=== PATIENT | female | born 1950 | race Caucasian/White ===

== ENCOUNTER 2018-08-30 09:12 | Inpatient (IN) ==
[2018-08-30 09:33] LABS: Basophils # (auto) 0.02 K/uL (0-0.2); Basophils % (auto) 0.2 %; Eosinophils # (auto) 0.03 K/uL (0-0.5); Eosinophils % (auto) 0.3 %; Hematocrit (blood only) 49.2 % (37-47); Immature Granulocytes # (auto) 0.03 K/uL (0.00-0.02); Immature Granulocytes % (auto) 0.3 %; Lymphocytes # (auto) 0.98 K/uL (1.2-3.4); Lymphocytes % (auto) 9.6 %; Mean Corpuscular Hgb Conc 34.6 g/dL (32-36); Mean Corpuscular Volume 87.4 fL (80-100); Mean Platelet Volume 9.9 fL (7.4-10.4); Monocytes # (auto) 0.44 K/uL (0.11-0.59); Monocytes % (auto) 4.3 %; Neutrophils # (auto) 8.71 K/uL (1.4-6.5); Neutrophils % (auto) 85.3 %; Platelet Count 201 K/uL (130-400); RDW Coefficient of Variation 12.7 % (11.5-14.5); RDW Standard Deviation 40.6 fL (36.4-46.3); Red Blood Count 5.63 M/uL (4.2-5.4); White Blood Count 10.21 K/uL (4.8-10.8)
[2018-08-30 09:40] LABS: iSTAT Creatinine 0.6 mg/dl (0.6-1.3); iSTAT Ionized Calcium 1.26 mmol/l (1.12-1.32); iSTAT Potassium 3.6 mEq/L (3.3-5.0)
--- NOTE | 2018-08-30 09:43 | XRay Report ---
XR chest 1V portable CLINICAL HISTORY: altered dyspnea COMPARISON STUDY: No previous studies for comparison. FINDINGS: The bones soft tissues and hemidiaphragms are normal. The cardiomediastinal silhouette is n ormal. The lungs are clear. The pulmonary vasculature is normal. IMPRESSION: Negative chest. The above report was generated using voice recognition software. It may contain grammatical, syntax or spelling errors. Electronically signed by: Simón Arias M.D. 08/30/2018 9:42 AM
[2018-08-30 09:44] LABS: INR 1.1 (0.9-1.1); Partial Thromboplastin Ratio 0.9; Partial Thromboplastin Time 23.9 Seconds (21.0-31.0); Prothrombin Time 10.9 Seconds (9.0-12.0)
[2018-08-30 09:52] LABS: Alanine Aminotransferase 37 U/L (12-78); Albumin Level 4.2 gm/dl (3.4-5.0); Aspartate Aminotransferase 27 U/L (15-37); BUN Creatinine Ratio 22.2 (10-20); Blood Urea Nitrogen 16 mg/dl (7-18); Calcium 10.7 mg/dl (8.5-10.1); Carbon Dioxide 23 mmol/L (21-32); Chloride 111 mmol/L (98-107); Creatinine Clr Calc Pharmacy 71.1 ml/min; Est GFR (African American) 97.2; Est GFR (Non-African American) 83.8; Glucose 122 mg/dl (70-99); Magnesium 2.4 mg/dl (1.8-2.4); Potassium 3.7 mmol/L (3.5-5.1); Sodium 143 mmol/L (136-145)
[2018-08-30] MEDS ORDERED: OPTIRAY 320 125ml IV PRN (09:57)
[2018-08-30 10:00] LABS: Appearance Urine Turbid (Clear); Bilirubin Urine Negative (Negative); Blood Urine Negative (Negative); Color Urine Yellow; Epithelial Cell Urine Auto >30 /lpf (0-5); Glucose Urine UA Negative (Negative); Ketones Urine Negative (Negative); Leukocyte Esterase Urine 2+ (Negative); Nitrite Urine Negative (Negative); RBC Urine Automated 0-4 /hpf (0-4); Specific Gravity Urine 1.016 (1.000-1.030); Urobilinogen Urine Negative (Negative); pH Urine 7.5 (4.5-7.5)
--- NOTE | 2018-08-30 10:00 | CT Scan Report ---
CT head/brain wo con CLINICAL HISTORY: 67 years-old Female with Stroke evaluation . Acute strokelike symptoms TECHNIQUE: Multiple axial CT images of the head were obtained without contrast. A dose lowering tech nique was utilized adhering to the principles of ALARA. COMPARISON: None. FINDINGS: No acute intracranial hemorrhage, midline shift, intracranial mass, hydrocephalus, territorial ischem ia or abnormal extra-axial collection. Mild age-related involutional changes. Patchy white matter hyp odensities are suggestive of chronic microvascular ischemic changes. Cerebral vascular calcifications are noted. The calvarium is intact. The paranasal sinuses, mastoid air cells, and middle ear cavities are clear . IMPRESSION: No acute intracranial abnormality identified. The above report was generated using voice recognition software. It may contain grammatical, syntax o r spelling errors. Electronically signed by: Miles Garcia M.D. 08/30/2018 9:58 AM
--- NOTE | 2018-08-30 10:02 | CT Scan Report ---
CT angio head w con HISTORY: Mental status change cva TECHNIQUE: Multiaxial CT angiography of the head was performed IV contrast: None. Maximum in tensity projection images were also obtained. A dose lowering technique was utilized adhering to the principles of ALARA. COMPARISON: None. FINDINGS: There is no mass, hematoma, midline shift, or acute infarct. Visualized intracranial advisory internship al carotid arteries, distal vertebral arteries, and basilar artery are widely patent. There is no sig nificant stenosis, occlusion, or aneurysm seen within the bilateral ACAs, MCAs, or wrinkle chaser. IMPRESSION: No significant stenosis, occlusion, or aneurysm within the [place] of [place]. The above report was generated using voice recognition software. It may contain grammatical, syntax or spelling errors. Electronically signed by: Simón Arias M.D. 08/30/2018 10:01 AM
[2018-08-30 10:04] LABS: Albumin Globulin Ratio 1.2 (0.9-2); Alkaline Phosphatase 70 U/L (45-117); Bilirubin,Total 0.7 mg/dl (0.2-1); Creatine Kinase MB 2.7 ng/ml (0.5-3.6); Globulin 3.5 gm/dl (2.5-4.0); Total Protein 7.7 gm/dl (6.4-8.2); Troponin I < 0.015 ng/ml (0-0.045)
--- NOTE | 2018-08-30 10:04 | CT Scan Report ---
CT angio neck with con HISTORY: Mental status change cva TECHNIQUE: Multiaxial CT angiography of the neck was performed IV contrast: 100 cc All measure ments were calculated based on NASCET criteria. Maximum intensity projection images were also obtain ed. A dose lowering technique was utilized adhering to the principles of ALARA. COMPARISON STUDY: None. FINDINGS: The aortic arch and proximal great vessels are widely patent. There is no significant sten osis, occlusion, or dissection identified within the bilateral common carotid, internal carotid, or v ertebral arteries. IMPRESSION: No significant stenosis, occlusion, or dissection identified within the carotid or vertebral arteries . The above report was generated using voice recognition software. It may contain grammatical, syntax or spelling errors. Electronically signed by: Simón Arias M.D. 08/30/2018 10:03 AM
[2018-08-30] MEDS ORDERED: LABETALOL HCL IV 5 MG/ML 20ML IV STA ×2 (10:12→10:50)
[2018-08-30 10:18] LABS: Protein Urine Negative (Negative)
[2018-08-30] MEDS ORDERED: ALBUT/IPRATROP 3MG/0.5MG NEB 3 ML VIAL NEB STA (10:19)
[2018-08-30 10:33] LABS: Bacteria Urine Automated 1+ (Negative)
--- NOTE | 2018-08-30 12:10 | History & Physical Report ---
Date of Service August 30, 2018 Assessment & Plan (1) Altered mental status: -Admit to telemetry -Patient presenting from home after an episode of amnesia this morning -BP is significantly elevated upon EMS arrival at 226/131; in the ED 193/124 -Head CT/CTA, neck CTA unremarkable -Differentials considered: Transient global amnesia vs. stroke/TIA vs. hypertensive encephalopathy vs. metabolic encephalopathy from UTI -Obtain MRI and echo; will give full dose aspirin now and follow with 81 mg daily, check lipid panel and HbA1c in a.m. -Received labetalol 10 mg IV x 2 in the ED with improvement in BP; will continue to monitor BP throughout the day and provide additional antihypertensive if needed -Possible UTI, will place on empiric Rocephin and adjust per culture results -Neurochecks -Neuro consult (2) Hypertensive urgency: -upon EMS arrival 226/131; in the ED 193/124 -Patient typically takes amlodipine 5 mg daily -Received labetalol 10 mg IV x 2 in the ED with improvement in BP; will continue to monitor BP throughout the day and provide additional antihypertensive if needed (3) Hypercalcemia: -Mild, Ca+ 10.7 -Hold calcium supplement -Recheck with a.m. labs (4) GERD (gastroesophageal reflux disease): -Continue PPI (5) DVT prophylaxis: -SQ Lovenox History of Present Illness Chief Complaint: Altered mental status Primary Care Provider: [facility]IN PCP 67-year-old female who presents to the ED with altered mental status. History of this morning's events are unobtainable from her. History is obtained from ED records and patient's sister who is the bedside. Patient is visiting from out of town watching her grandchildren while her son is out of town. She reports she felt in her usual state of health yesterday and remembers going to bed. This morning, she vaguely remembers waking up however has no recollection of the events to follow. Apparently, patient called her son thinking she may have missed the bus for the grandchildren. He noted that she was confused and not at her baseline and he called EMS. EMS arrived to the house and brought the patient to the ED. Upon their arrival, patient's BP was 226/131. Patient's son was able to confirm that the children did arrive to school safely. Patient reports she has no remembrance of waking them up, getting them ready for school, or getting them on the bus. Patient reports she otherwise been feeling well recently. She does not note any unilateral weakness, numbness, tingling. No headache or blurred vision. She denies chest pain shortness of breath. No lightheadedness, digits, diaphoresis, syncopal events. She denies abdominal pain, nausea, vomiting, diarrhea. No other recent illnesses, fevers, chills. She denies any urinary symptoms. Upon arrival to the ED, patient's BP remained significantly elevated at 193/124. She received labetalol 10 mg IV x 2 with improvement in BP. Most recent BP is 174/97. Head CT and CTA, neck CTA are all unremarkable. Labs are unremarkable as well. Allergies Allergy/AdvReac Type Severity Reaction Status Date / Time lemon Allergy Hives Unverified 08/30/18 11:17 Home Medications Home Medications Medication Instructions Recorded Confirmed Type amlodipine [Norvasc] 5 mg PO QAM 08/30/18 08/30/18 History calcium carbonate-vitamin D3 1 tab PO QAM 08/30/18 08/30/18 History [Calcium 500 + D (D3)] omeprazole 20 mg PO QAM 08/30/18 08/30/18 History Past Med/Surg History Medical History GERD (gastroesophageal reflux disease) (Chronic) HTN (hypertension) (Chronic) Surgical History S/P bunionectomy (Chronic) History of carpal tunnel surgery (Chronic) Family History Father Coronary heart disease Mother Stroke Social History Preferred Language: [place] Communication Ability: 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 Physical Exam Constitutional: WD/WN, vitals as above Eyes: PERRL, conjunctivae normal, anicteric sclerae ENMT: external ear and nose normal, oropharynx normal Respiratory: normal respiratory effort, lungs clear to auscultation Cardiovascular: Rate/Rhythm: regular rate and regular rhythm Vessels: normal peripheral pulses Extremities: no edema Gastrointestinal (Abdomen): normal bowel sounds, soft, nontender, no hepatosplenomegaly Musculoskeletal: no cyanosis or clubbing, extremities motor strength 5/5 Skin: no rashes, warm and dry Neurologic: moves all extremities, awake and + confused (Short-term memory los s) Speech / Cognition: normal speech Motor/Sensory: no pronator drift Cranial Nerves: PERRL, EOM intact bilaterally, normal facial strength and tongue midline Coordination: normal [id number]-rg-[id number] test and normal sqdw-dv-uban test Psychiatric: A+Ox3, euthymic affect Results & Data Vital Signs (Past 12 Hours) Vital Signs Temp Pulse Pulse Resp BP BP Pulse Ox 08/30/18 11:31 90 15 174/97 H 08/30/18 11:30 87 18 08/30/18 11:15 91 H 16 156/103 H 08/30/18 11:01 96 H 21 08/30/18 11:00 95 H 14 184/122 H 08/30/18 10:45 95 H 18 175/116 H 08/30/18 10:38 97 H 16 173/114 H 96 08/30/18 10:31 95 H 15 08/30/18 10:30 95 H 17 173/114 H 08/30/18 10:24 102 H 15 166/110 H 08/30/18 10:18 116 H 19 203/115 H 08/30/18 10:17 121 H 30 H 08/30/18 10:11 120 H 17 197/121 H 93 08/30/18 10:01 107 H 16 95 08/30/18 10:00 109 H 19 191/104 H 96 08/30/18 09:59 110 H 13 175/115 H 97 08/30/18 09:58 108 H 109 H 20 188/105 H 175/115 H 96 08/30/18 09:57 109 H 22 96 08/30/18 09:30 119 H 18 08/30/18 09:22 116 H 22 96 08/30/18 09:20 36.6 C 118 H 16 193/124 H 96 08/30/18 09:18 115 H 18 193/124 H 94 Laboratory Results Laboratory Last Values WBC 10.21 K/uL (4.8-10.8) 08/30/18 09:23 RBC 5.63 M/uL (4.2-5.4) H 08/30/18 09:23 Hgb 17.0 g/dL (12.0-16.0) H 08/30/18 09:23 POC Hgb 17.0 g/dl (12.0-16.0) H 08/30/18 09:26 Hct 49.2 % (37-47) H 08/30/18 09:23 POC Hct 50 % (37-47) H 08/30/18 09:26 MCV 87.4 fL (80-100) 08/30/18 09:23 MCH 30.2 pg (25-34) 08/30/18 09:23 MCHC 34.6 g/dL (32-36) 08/30/18 09:23 RDW Std Deviation 40.6 fL (36.4-46.3) 08/30/18 09:23 RDW Coeff of Ying 12.7 % (11.5-14.5) 08/30/18 09:23 Plt Count 201 K/uL (130-400) 08/30/18 09:23 MPV 9.9 fL (7.4-10.4) 08/30/18 09:23 Immature Gran % (Auto) 0.3 % 08/30/18 09:23 Neut % (Auto) 85.3 % 08/30/18 09:23 Lymph % (Auto) 9.6 % 08/30/18 09:23 [place] % (Auto) 4.3 % 08/30/18 09:23 Eos % (Auto) 0.3 % 08/30/18 09:23 Baso % (Auto) 0.2 % 08/30/18 09:23 Immature Gran # (Auto) 0.03 K/uL (0.00-0.02) H 08/30/18 09:23 Neut # (Auto) 8.71 K/uL (1.4-6.5) H 08/30/18 09:23 Lymph # (Auto) 0.98 K/uL (1.2-3.4) L 08/30/18 09:23 [place] # (Auto) 0.44 K/uL (0.11-0.59) 08/30/18 09:23 Eos # (Auto) 0.03 K/uL (0-0.5) 08/30/18 09:23 Baso # (Auto) 0.02 K/uL (0-0.2) 08/30/18 09:23 PT 10.9 Seconds (9.0-12.0) 08/30/18 09:23 INR 1.1 (0.9-1.1) 08/30/18 09:23 APTT 23.9 Seconds (21.0-31.0) 08/30/18 09: PTT Ratio 0.9 08/30/18 09:23 POC Sodium 144 mEq/L (135-144) 08/30/18 09:26 Sodium 143 mmol/L (136-145) 08/30/18 09:23 POC Potassium 3.6 mEq/L (3.3-5.0) 08/30/18 09:26 Potassium 3.7 mmol/L (3.5-5.1) 08/30/18 09:23 POC Chloride 108 mEq/L (101-112) 08/30/18 09:26 Chloride 111 mmol/L (98-107) H 08/30/18 09:23 Carbon Dioxide 23 mmol/L (21-32) 08/30/18 09:23 POC Total CO2 24 mEq/l (24-31) 08/30/18 09:26 Anion Gap 9.0 (3-11) 08/30/18 09:23 POC Anion Gap 16.0 mmol/L (16-25) 08/30/18 09:26 POC BUN 18 mg/dl (7-18) 08/30/18 09:26 BUN 16 mg/dl (7-18) 08/30/18 09:23 Creatinine 0.74 mg/dl (0.6-1.2) 08/30/18 09:23 POC Creatinine 0.6 mg/dl (0.6-1.3) 08/30/18 09:26 Est Cr Clr Drug Dosing 71.1 ml/min 08/30/18 09:23 Est GFR ( Amer) 97.2 08/30/18 09:23 Est GFR (Non-Af Amer) 83.8 08/30/18 09:23 BUN/Creatinine Ratio 22.2 (10-20) H 08/30/18 09:23 Glucose 122 mg/dl (70-99) H 08/30/18 09:23 POC Glucose (other) 124 mg/dl (70-99) H 08/30/18 09:26 Calcium 10.7 mg/dl (8.5-10.1) H 08/30/18 09:23 POC Ioniz Calcium Jayme 1.26 mmol/l (1.12-1.32) 08/30/18 09:26 Magnesium 2.4 mg/dl (1.8-2.4) 08/30/18 09:23 Total Bilirubin 0.7 mg/dl (0.2-1) 08/30/18 09:23 AST 27 U/L (15-37) 08/30/18 09:23 ALT 37 U/L (12-78) 08/30/18 09:23 Alkaline Phosphatase 70 U/L (45-117) 08/30/18 09:23 CK-MB (CK-2) 2.7 ng/ml (0.5-3.6) 08/30/18 09:23 CK/CKMB % Calc Not Reportable 08/30/18 09:23 Troponin I < 0.015 ng/ml (0-0.045) 08/30/18 09:23 Total Protein 7.7 gm/dl (6.4-8.2) 08/30/18 09:23 Albumin 4.2 gm/dl (3.4-5.0) 08/30/18 09:23 Globulin 3.5 gm/dl (2.5-4.0) 08/30/18 09:23 Albumin/Globulin Ratio 1.2 (0.9-2) 08/30/18 09:23 Specimen Hemolysis 08/30/18 09:23 Urine Color Yellow 08/30/18 09:45 Urine Appearance Turbid (Clear) H 08/30/18 09:45 Urine pH 7.5 (4.5-7.5) 08/30/18 09:45 Ur Specific [place] 1.016 (1.000-1.030) 08/30/18 09:45 Urine Protein Negative (Negative) 08/30/18 09:45 Urine Glucose (UA) Negative (Negative) 08/30/18 09:45 Urine Ketones Negative (Negative) 08/30/18 09:45 Urine Blood Negative (Negative) 08/30/18 09:45 Urine Nitrite Negative (Negative) 08/30/18 09:45 Urine Bilirubin Negative (Negative) 08/30/18 09:45 Urine Urobilinogen Negative (Negative) 08/30/18 09:45 Ur Leukocyte Esterase 2+ (Negative) H 08/30/18 09:45 Urine WBC (Auto) 1-5 /hpf (0-5) 08/30/18 09:45 Urine RBC (Auto) 0-4 /hpf (0-4) 08/30/18 09:45 U Hyaline Cast (Auto) 1-5 /lpf (0-5) 08/30/18 09:45 U Epithel Cells (Auto) >30 /lpf (0-5) H 08/30/18 09:45 Urine Bacteria (Auto) 1+ (Negative) H 08/30/18 09:45 Diagnostic Findings CXR IMPRESSION: Negative chest. HEAD CT IMPRESSION: No acute intracranial abnormality identified. HEAD CTA IMPRESSION: No significant stenosis, occlusion, or aneurysm within the [place] of [place]. NECK CTA IMPRESSION: No significant stenosis, occlusion, or dissection identified within the carotid or vertebral arteries. Code Status & VTE Plan VTE Prophylaxis Plan VTE Prophylaxis will be ordered: Yes Supervising Physician Co-Signing Physician Notes 1. Amnesia 2/2 acute right frontal lobe stroke 2. Acute cystitis 3. Elevated HTN in the setting of acute stroke. I have seen and examined the patient and have discussed the case with the provider above. I agree with the assessment and plan as stated with the following exceptions. 67 yo F presented with acute memory loss of morning events. She is currently alert and oriented to person, place and time. She had elevated BP over 200 today, and wasn't sure if she had taken her BP med, amlodipine. She did report some palpitations in prior weeks but this was nonspecific. She otherwise did not have any other symptoms including no difficulty swallowing, speaking, swallowing, weakness of arms or legs, chest pain, shortness of breath. She does report a h/o dropped bladder and did have some urinary urgency just today but no fevers, chills, flank pain. 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 She was in no acute distress and was mentating clearly. Neuro exam including cranial nerve testing, sensation, strength, Elizabeth and finger to nose testing was all normal. Gait was not assessed but she reported walking to the ER bathroom without issue. Babinski was negative, DTR of knees could not be elicited as patient was tensing up. Fundoscopic exam was normal. CV exam revealed S1/2 heard with no murmurs, gallops or rubs. Lungs were clear to auscultation. Abdomen was soft and nontender, without distension. Workup with MRI revealed a small right frontal lobe stroke and I discussed these results with the patient and her DIL who was at bedside. All questions were answered to their satisfaction. DAPT while awaiting neuro recommendations. Cont to hold amlodipine to allow permissive HTN x 48 hours. Rocephin pending urine culture. Mohit, DO
--- NOTE | 2018-08-30 13:32 | Magnetic Resonance Report ---
MR brain wo/w con CLINICAL HISTORY: altered mental status confusion. COMPARISON STUDY: No previous studies for comparison. TECHNIQUE: Utilizing a 1.5 Danitza magnet and dedicated coil, multiplanar, multiecho imaging of the br ain was performed pre and postcontrast administration. IV administration of 8 mL of Gadavist contras t was uneventful. FINDINGS: Focus of acute/subacute ischemic change right frontal convexity. No additional acute ischem ic findings. Moderate age-related chronic small vessel change and atrophy. No significant postcontrast enhancement. Ventricular system is midline. No midline shift. IMPRESSION: 1. Small acute/subacute infarct right superior frontal lobe. 2. Age-related atrophy with significant chronic small vessel change throughout both cerebral hemisphe res. 3. No abnormal postcontrast enhancement. The above report was generated using voice recognition software. It may contain grammatical, syntax or spelling errors. Electronically signed by: Simón Arias M.D. 08/30/2018 1:31 PM
[2018-08-30] MEDS ORDERED: CLOPIDOGREL BISULFATE 75 MG TAB PO ONE (14:01)
[2018-08-30] MEDS ORDERED: ASPIRIN 81 MG ECTAB PO ONE (14:02)
[2018-08-30] MEDS ORDERED: PHARMACIST DISCHARGE MED REC CONSULT PRN (15:35)
[2018-08-30] MEDS ORDERED: ACETAMINOPHEN 325 MG TAB PO PRN (15:35)
--- NOTE | 2018-08-30 15:54 | Neurology Consultation ---
Date of Consultation August 30, 2018 Assessment & Plan (1) Stroke: 1. MRI brain- right superior frontal lobe infarct 2. CTA head and neck -no high grade stenosis 3. start plavix 75 mg and aspirin 81 mg daily x 21 days then aspirin 81 mg alone for a lifetime 4. optimize HTN, HLD LDL <70 5. PT/OT speech for any discharge needs 6. TTE pending read 7. ZIO or cardionet as outpatient to r/o arrhythmias 8. lives in [facility] no neurology follow up with our office- please give specific instructions so PCP can follow up with plan ok to discharge once medically stable Supervising Physician Co-Signing Physician Notes I have seen and discussed above patient with Dr Jimi Handy, neurology I have seen, examined and interviewed Mrs. Farrar discussed her case with Aracely White PA-C, have reviewed her imaging studies and agree that she has had what appears to be a small acute infarction involving the deep portions of the right frontal lobe with a clinical history that suggests the entity of transient global amnesia which generally is felt to be due to ischemia of a dominant temporal lobe She has no recall of events of this morning about 6 AM on he had apparently was capable of getting her grandchildren onto the bus, made several phone calls but was repetitious to the point that family members became concerned enough to range for her to be taken to the hospital evaluated and subsequently admitted. Thus far she has had normal sinus rhythm and echocardiogram is pending vascular studies of the intracranial anatomy are normal and we do have only a small punctate infarction involving the right frontal lobe Because of the small infarction is not yet readily established. I am highly suspicious of an embolic event and at this point we are simply going up to keep her on dual antiplatelet therapy and arrange for her to be followed up in her home medical system [facility] and to have some form of monitoring for paroxysmal atrial fibrillation either a 0 patch or what ever monitoring device would be available to her in that area. We will see if the echocardiogram shows any clear source of cardiogenic emboli but unless it does there is really no role here for novel anticoagulants or Coumadin until we have a little more information. Please because we have an acute infarction which may be at least in part an explanation of her event I see no reason to do an EEG as the odds of this being due to a seizure are extremely low. We will check back tomorrow review the outstanding studies but if she is clinically stable, there is no significant abnormalities on the echo the family wants her to be discharged we can easily permit discharge and follow-up in her local area Jimi Handy MD History of Present Illness Reason for Consultation: AMS/amensia Requesting Physician: Shiela Booker MD Attending Physician: Shiela Booker History of Present Illness Marjorie is a 67 year old female who presents to the ED with altered mental status. She is visiting from out of town watching her grandchildren while her son is out of town. She vaguely remembers waking up however has no recollection of the events to follow. She called her son thinking she may have missed the bus for the grandchildren. He noted that she was confused and not at her baseline and he called EMS. EMS arrived to the house and brought the patient to the ED. Her Blood pressure was 226/131. Her son was able to confirm that the children did arrive to school safely. She does not remember getting them ready for school, or getting them on the bus. She received labetalol 10 mg IV x 2 with improvement in BP. Most recent BP is 174/97. Head CT and CTA, neck CTA are all unremarkable. the only medical issues she has is HTN and GERD. Her father of a massive heart attach in his 70's and mom of a stroke in her 80's. Her son afjacquelyn, a sister with blood pressure issues. Her blood pressure is well controlled accept when she is at the doctor's she has white coat syndrome. denies CP, SOB, abdominal pain, N, V, D, one sided weakness, numbness tingling, vision changes, swallowing issues. Allergies Allergy/AdvReac Type Severity Reaction Status Date / Time lemon Allergy Hives Unverified 08/30/18 11:17 Home Medications Home Medications Medication Instructions Recorded Confirmed Type amlodipine [Norvasc] 5 mg PO QAM 08/30/18 08/30/18 History calcium carbonate-vitamin D3 1 tab PO QAM 08/30/18 08/30/18 History [Calcium 500 + D (D3)] omeprazole 20 mg PO QAM 08/30/18 08/30/18 History Patient History Medical History GERD (gastroesophageal reflux disease) (Chronic) HTN (hypertension) (Chronic) Surgical History S/P bunionectomy (Chronic) History of carpal tunnel surgery (Chronic) Family History Father Coronary heart disease Mother Stroke Social History Preferred Language: [place] Communication Ability: Effective Loom Fixer Required: No Beliefs That Will Affect Care: Samaritan Samaritan Beliefs: Scientologist Current Living Situation: Spouse and Family Other Information That Helps Us Care for You: No Feels Safe at Home: Yes Safety Concerns: Feels Safe At This Time Smoking Status: Never smoker Do You Dip or Chew Tobacco: No Hx Alcohol Use: No Hx Substance Use: No Physical Exam Physical Exam: Physical Exam: Constitutional: appearance over nourished, healthy and normal Ears, Nose, Mouth and Throat: mucous membranes moist, no injection and skin normal, eyes normal Cardiovascular: normal S-1 and S-2 and regular rate and rhythm Respiratory: clear to auscultation (CTA) and no rales, rhonchi or wheeze Musculoskeletal: no peripheral edema and good distal pulses Skin: no stigmata of neurocutaneous disease noted and normal and intact Eyes: extraocular muscles intact (EOMI) and pupils equal, round and reactive to light (PERRL), peripheral vision grossly intact NEUROLOGIC EXAMINATION: Mental status: Alert and interactive Oriented to full date and location, August holiday Anika, president Lit, [facility], staying in [place] identifed sister and daughter in law Oriented to person Speech fluent with no evidence of aphasia Cranial Nerves smile eye brow raise symmetric Reflexes: Deep tendon reflexes were symmetrical and graded 2/5. Sensory: light and cool touch Coordination: finger to nose no bi pass, rapid movement of hands bilaterally intact Gait/Stance: Posture sitting up in bed has been walking to the bathroom with no difficulty Motor: Negative for pronator drift of out stretched arms with eyes closed. Strength: biceps triceps hand admin assistant bilaterally 5/5, hip flex patellar/plantar flex ext 5/5 bilaterally Results & Data Vital Signs (Past 12 Hours) Vital Signs Temp Pulse Pulse Resp BP BP Pulse Ox 08/30/18 14:31 85 22 97 08/30/18 14:30 79 19 164/106 H 96 04/24/19 14:15 87 18 96 08/30/18 14:01 85 15 95 08/30/18 14:00 85 20 141/92 H 96 08/30/18 13:45 84 13 96 08/30/18 13:33 83 13 08/30/18 13:32 155/86 H 08/30/18 12:45 87 17 94 08/30/18 12:30 88 16 167/102 H 95 08/30/18 12:15 88 17 167/109 H 95 08/30/18 12:01 91 H 16 94 08/30/18 12:00 89 17 176/103 H 95 08/30/18 11:45 88 19 155/103 H 95 08/30/18 11:32 89 17 08/30/18 11:31 90 15 174/97 H 08/30/18 11:30 87 18 08/30/18 11:15 91 H 16 156/103 H 08/30/18 11:01 96 H 21 08/30/18 11:00 95 H 14 184/122 H 08/30/18 10:45 95 H 18 175/116 H 08/30/18 10:38 97 H 16 173/114 H 96 08/30/18 10:31 95 H 15 08/30/18 10:30 95 H 17 173/114 H 08/30/18 10:24 102 H 15 166/110 H 08/30/18 10:18 116 H 19 203/115 H 08/30/18 10:17 121 H 30 H 08/30/18 10:11 120 H 17 197/121 H 93 08/30/18 10:01 107 H 16 95 08/30/18 10:00 109 H 19 191/104 H 96 08/30/18 09:59 110 H 13 175/115 H 97 08/30/18 09:58 108 H 109 H 20 188/105 H 175/115 H 96 08/30/18 09:57 109 H 22 96 08/30/18 09:30 119 H 18 08/30/18 09:22 116 H 22 96 08/30/18 09:20 36.6 C 118 H 16 193/124 H 96 08/30/18 09:18 115 H 18 193/124 H 94 Laboratory Results Abnormal lab results 08/30/18 08/30/18 08/30/18 Range/Units 09:23 09:23 09:26 RBC 5.63 H (4.2-5.4) M/uL Hgb 17.0 H (12.0-16.0) g/dL POC Hgb 17.0 H (12.0-16.0) g/dl Hct 49.2 H (37-47) % POC Hct 50 H (37-47) % Immature Gran # (Auto) 0.03 H (0.00-0.02) K/uL Neut # (Auto) 8.71 H (1.4-6.5) K/uL Lymph # (Auto) 0.98 L (1.2-3.4) K/uL Chloride 111 H (98-107) mmol/L BUN/Creatinine Ratio 22.2 H (10-20) Glucose 122 H (70-99) mg/dl POC Glucose (other) 124 H (70-99) mg/dl Calcium 10.7 H (8.5-10.1) mg/dl Urine Appearance (Clear) Ur Leukocyte Esterase (Negative) U Epithel Cells (Auto) (0-5) /lpf Urine Bacteria (Auto) (Negative) 08/30/18 Range/Units 09:45 RBC (4.2-5.4) M/uL Hgb (12.0-16.0) g/dL POC Hgb (12.0-16.0) g/dl Hct (37-47) % POC Hct (37-47) % Immature Gran # (Auto) (0.00-0.02) K/uL Neut # (Auto) (1.4-6.5) K/uL Lymph # (Auto) (1.2-3.4) K/uL Chloride (98-107) mmol/L BUN/Creatinine Ratio (10-20) Glucose (70-99) mg/dl POC Glucose (other) (70-99) mg/dl Calcium (8.5-10.1) mg/dl Urine Appearance Turbid H (Clear) Ur Leukocyte Esterase 2+ H (Negative) U Epithel Cells (Auto) >30 H (0-5) /lpf Urine Bacteria (Auto) 1+ H (Negative) Diagnostic Findings CXR-Negative chest. CT head- No acute intracranial abnormality identified. CTA head-No significant stenosis, occlusion, or aneurysm within the [place]. CTA neck-No significant stenosis, occlusion, or dissection identified within the carotid or vertebral arteries. MRI brain combo-Small acute/subacute infarct right superior frontal lobe. Age- related atrophy with significant chronic small vessel change throughout both cerebral hemispheres. No abnormal postcontrast enhancement. (1) Stroke CVA mechanism: unspecified Qualified Code(s): I63.9 - Cerebral infarction, unspecified
[2018-08-30] MEDS ORDERED: ENOXAPARIN INJ 40 MG/0.4 ML SYR SQ SCH (16:00)
[2018-08-30] MEDS ORDERED: cefTRIAXone SODIUM 1,000 MG in DEXTROSE 5% 50 ML IV SCH (16:00)
[2018-08-30] MEDS ORDERED: PERFLUTREN LIPID MICROSPHERE (DEFINITY) IV ONE (16:27)
--- NOTE | 2018-08-30 18:10 | Emergency Department Note ---
Entered by Yaneth Uriarte acting as a scribe for Noel Fournier DO History of Present Illness General Chief complaint: Altered Mental Status Time Seen by Provider: 08/30/18 09:13 Source: patient and EMS Limitations: altered mental status History of Present Illness Provider complaint: altered mental status Onset (ago): hour(s) (today) Location: head Quality: + other (altered mental status) Associated symptoms: no headaches and no nausea/vomiting The patient is a 67 year old female who present to the emergency department with complaints of an altered mental status today. The patient denies having nausea, vomiting, or headaches. She reports that she takes a blood pressure medication but denies being on blood thinners. She denies a history of strokes. Limited HPI secondary to AMS. Per EMS, the patient was talking in circles and stated that she has not taken her blood pressure medication over the last several days. EMS states that he is unsure when the patient's symptoms began and states that the patient's son called about 35 minutes prior to arrival. Per EMS, the patient is visiting [facility]. Home Medications Home Medications Medication Instructions Recorded Confirmed Type amlodipine [Norvasc] 5 mg PO QAM 08/30/18 08/30/18 History calcium carbonate-vitamin D3 1 tab PO QAM 08/30/18 08/30/18 History [Calcium 500 + D (D3)] omeprazole 20 mg PO QAM 08/30/18 08/30/18 History Allergies Allergy/AdvReac Type Severity Reaction Status Date / Time lemon Allergy Hives Unverified 08/30/18 11:17 Past Med/Surg History Medical History GERD (gastroesophageal reflux disease) (Chronic) HTN (hypertension) (Chronic) Surgical History S/P bunionectomy (Chronic) History of carpal tunnel surgery (Chronic) Family History Father Coronary heart disease Mother Stroke Social History Preferred Language: Indian Communication Ability: Effective 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 Physical Exam Vital Signs Vital Signs - 24 hr 08/30/18 09:18 08/30/18 09:20 08/30/18 09:22 Temperature 36.6 C Temperature Source Oral Sepsis Recent Fever Within 48 Hours No Sepsis New/Unexplained Change in Mental Status No Sepsis Action Taken by Nursing No Action Required Pulse Rate 115 H 118 H 116 H Pulse Rate [Apical] Pulse Rate from SpO2 Sensor 114 H 116 H Respiratory Rate 18 16 22 Respiratory Effort / Characteristics Respiratory Depth Respiratory Pattern Blood Pressure 193/124 H 193/124 H Blood Pressure [Right Arm] Blood Pressure Mean 147 147 Blood Pressure Mean [Right Arm] Blood Pressure Position [Right Arm] Pulse Oximetry 94 96 96 Oxygen Delivery Method Room Air 08/30/18 09:30 08/30/18 09:57 08/30/18 09:58 Temperature Temperature Source Sepsis Recent Fever Within 48 Hours Sepsis New/Unexplained Change in Mental Status Sepsis Action Taken by Nursing Pulse Rate 119 H 109 H 108 H Pulse Rate [Apical] 109 H Pulse Rate from SpO2 Sensor 108 H 108 H Respiratory Rate 18 22 20 Respiratory Effort / Characteristics Non-Labored Spontaneous Respiratory Depth Normal Respiratory Pattern Blood Pressure 188/105 H Blood Pressure [Right Arm] 175/115 H Blood Pressure Mean 132 Blood Pressure Mean [Right Arm] 135 Blood Pressure Position [Right Arm] Pulse Oximetry 96 96 Oxygen Delivery Method Room Air 08/30/18 09:59 08/30/18 10:00 08/30/18 10:01 Temperature Temperature Source Sepsis Recent Fever Within 48 Hours Sepsis New/Unexplained Change in Mental Status Sepsis Action Taken by Nursing Pulse Rate 110 H 109 H 107 H Pulse Rate [Apical] Pulse Rate from SpO2 Sensor 109 H 109 H 107 H Respiratory Rate 13 19 16 Respiratory Effort / Characteristics Respiratory Depth Respiratory Pattern Blood Pressure 175/115 H 191/104 H Blood Pressure [Right Arm] Blood Pressure Mean 135 133 Blood Pressure Mean [Right Arm] Blood Pressure Position [Right Arm] Pulse Oximetry 97 96 95 Oxygen Delivery Method 08/30/18 10:11 08/30/18 10:17 08/30/18 10:18 Temperature Temperature Source Sepsis Recent Fever Within 48 Hours Sepsis New/Unexplained Change in Mental Status Sepsis Action Taken by Nursing Pulse Rate 120 H 121 H 116 H Pulse Rate [Apical] Pulse Rate from SpO2 Sensor 119 H Respiratory Rate 17 30 H 19 Respiratory Effort / Characteristics Respiratory Depth Respiratory Pattern Blood Pressure 197/121 H 203/115 H Blood Pressure [Right Arm] Blood Pressure Mean 146 144 Blood Pressure Mean [Right Arm] Blood Pressure Position [Right Arm] Pulse Oximetry 93 Oxygen Delivery Method 08/30/18 10:24 08/30/18 10:30 08/30/18 10:31 Temperature Temperature Source Sepsis Recent Fever Within 48 Hours Sepsis New/Unexplained Change in Mental Status Sepsis Action Taken by Nursing Pulse Rate 102 H 95 H 95 H Pulse Rate [Apical] Pulse Rate from SpO2 Sensor Respiratory Rate 15 17 15 Respiratory Effort / Characteristics Respiratory Depth Respiratory Pattern Blood Pressure 166/110 H 173/114 H Blood Pressure [Right Arm] Blood Pressure Mean 128 133 Blood Pressure Mean [Right Arm] Blood Pressure Position [Right Arm] Pulse Oximetry Oxygen Delivery Method 08/30/18 10:38 08/30/18 10:45 08/30/18 11:00 Temperature Temperature Source Sepsis Recent Fever Within 48 Hours Sepsis New/Unexplained Change in Mental Status Sepsis Action Taken by Nursing Pulse Rate 95 H 95 H Pulse Rate [Apical] 97 H Pulse Rate from SpO2 Sensor Respiratory Rate 16 18 14 Respiratory Effort / Characteristics Respiratory Depth Respiratory Pattern Blood Pressure 175/116 H 184/122 H Blood Pressure [Right Arm] 173/114 H Blood Pressure Mean 135 142 Blood Pressure Mean [Right Arm] 133 Blood Pressure Position [Right Arm] Pulse Oximetry 96 Oxygen Delivery Method Room Air 08/30/18 11:01 08/30/18 11:15 08/30/18 11:30 Temperature Temperature Source Sepsis Recent Fever Within 48 Hours Sepsis New/Unexplained Change in Mental Status Sepsis Action Taken by Nursing Pulse Rate 96 H 91 H 87 Pulse Rate [Apical] Pulse Rate from SpO2 Sensor Respiratory Rate 21 16 18 Respiratory Effort / Characteristics Respiratory Depth Respiratory Pattern Blood Pressure 156/103 H Blood Pressure [Right Arm] Blood Pressure Mean 120 Blood Pressure Mean [Right Arm] Blood Pressure Position [Right Arm] Pulse Oximetry Oxygen Delivery Method 08/30/18 11:31 08/30/18 11:32 08/30/18 11:45 Temperature Temperature Source Sepsis Recent Fever Within 48 Hours Sepsis New/Unexplained Change in Mental Status Sepsis Action Taken by Nursing Pulse Rate 90 89 88 Pulse Rate [Apical] Pulse Rate from SpO2 Sensor 88 Respiratory Rate 15 17 19 Respiratory Effort / Characteristics Respiratory Depth Respiratory Pattern Blood Pressure 174/97 H 155/103 H Blood Pressure [Right Arm] Blood Pressure Mean 122 120 Blood Pressure Mean [Right Arm] Blood Pressure Position [Right Arm] Pulse Oximetry 95 Oxygen Delivery Method Room Air 08/30/18 12:00 08/30/18 12:01 08/30/18 12:15 Temperature Temperature Source Sepsis Recent Fever Within 48 Hours Sepsis New/Unexplained Change in Mental Status Sepsis Action Taken by Nursing Pulse Rate 89 91 H 88 Pulse Rate [Apical] Pulse Rate from SpO2 Sensor 89 90 88 Respiratory Rate 17 16 17 Respiratory Effort / Characteristics Respiratory Depth Respiratory Pattern Blood Pressure 176/103 H 167/109 H Blood Pressure [Right Arm] Blood Pressure Mean 127 128 Blood Pressure Mean [Right Arm] Blood Pressure Position [Right Arm] Pulse Oximetry 95 94 95 Oxygen Delivery Method 08/30/18 12:30 08/30/18 12:45 08/30/18 13:32 Temperature Temperature Source Sepsis Recent Fever Within 48 Hours Sepsis New/Unexplained Change in Mental Status Sepsis Action Taken by Nursing Pulse Rate 88 87 Pulse Rate [Apical] Pulse Rate from SpO2 Sensor 88 88 Respiratory Rate 16 17 Respiratory Effort / Characteristics Respiratory Depth Respiratory Pattern Blood Pressure 167/102 H 155/86 H Blood Pressure [Right Arm] Blood Pressure Mean 123 109 Blood Pressure Mean [Right Arm] Blood Pressure Position [Right Arm] Pulse Oximetry 95 94 Oxygen Delivery Method 08/30/18 13:33 08/30/18 13:45 08/30/18 14:00 Temperature Temperature Source Sepsis Recent Fever Within 48 Hours Sepsis New/Unexplained Change in Mental Status Sepsis Action Taken by Nursing Pulse Rate 83 84 85 Pulse Rate [Apical] Pulse Rate from SpO2 Sensor 85 85 Respiratory Rate 13 13 20 Respiratory Effort / Characteristics Respiratory Depth Respiratory Pattern Blood Pressure 141/92 H Blood Pressure [Right Arm] Blood Pressure Mean 108 Blood Pressure Mean [Right Arm] Blood Pressure Position [Right Arm] Pulse Oximetry 96 96 Oxygen Delivery Method 08/30/18 14:01 08/30/18 14:15 08/30/18 14:30 Temperature Temperature Source Sepsis Recent Fever Within 48 Hours Sepsis New/Unexplained Change in Mental Status Sepsis Action Taken by Nursing Pulse Rate 85 87 79 Pulse Rate [Apical] Pulse Rate from SpO2 Sensor 86 89 78 Respiratory Rate 15 18 19 Respiratory Effort / Characteristics Respiratory Depth Respiratory Pattern Blood Pressure 164/106 H Blood Pressure [Right Arm] Blood Pressure Mean 125 Blood Pressure Mean [Right Arm] Blood Pressure Position [Right Arm] Pulse Oximetry 95 96 96 Oxygen Delivery Method 08/30/18 14:31 08/30/18 14:41 08/30/18 16:00 Temperature 36.8 C Temperature Source Oral Sepsis Recent Fever Within 48 Hours Sepsis New/Unexplained Change in Mental Status Sepsis Action Taken by Nursing Pulse Rate 85 86 Pulse Rate [Apical] 79 Pulse Rate from SpO2 Sensor 81 Respiratory Rate 22 16 Respiratory Effort / Characteristics Non-Labored Spontaneous Respiratory Depth Normal Respiratory Pattern Regular Blood Pressure Blood Pressure [Right Arm] 176/116 H Blood Pressure Mean Blood Pressure Mean [Right Arm] 136 Blood Pressure Position [Right Arm] Pulse Oximetry 97 96 Oxygen Delivery Method Room Air Room Air 08/30/18 19:55 08/31/18 00:26 08/31/18 03:09 Temperature 36.9 C 36.6 C 37.0 C Temperature Source Oral Oral Oral Sepsis Recent Fever Within 48 Hours Sepsis New/Unexplained Change in Mental Status Sepsis Action Taken by Nursing Pulse Rate Pulse Rate [Apical] 76 83 84 Pulse Rate from SpO2 Sensor Respiratory Rate 19 18 18 Respiratory Effort / Characteristics Respiratory Depth Normal Respiratory Pattern Blood Pressure Blood Pressure [Right Arm] 163/99 H 158/96 H 166/100 H Blood Pressure Mean Blood Pressure Mean [Right Arm] 120 116 122 Blood Pressure Position [Right Arm] Lying Pulse Oximetry 96 97 96 Oxygen Delivery Method Room Air Room Air Room Air GENERAL: Patient is awake, alert, and in no acute distress.Patient is resting comfortably and showing no signs of anxiety EYES: The conjunctivae are clear. The pupils are round and reactive. EARS, NOSE, MOUTH AND THROAT: The nose is without any evidence of any deformity. Mucous membranes are moist.Tongue is midline NECK: The neck is nontender and supple. RESPIRATORY: Normal respiratory effort is noted. There is no evidence of wheezi ng rhonchi or rales to auscultation. CARDIOVASCULAR: Regular rate and rhythm noted. There no murmurs rubs or gallops normal S1 normal S2 GASTROINTESTINAL: The abdomen is soft. Bowel sounds are present in all quadrants. Abdomen is nontender. BACK: No midline tenderness or or step-off noted range of motion in flexion extension as well as rotation no signs of muscle spasm noted. MUSCULOSKELETAL/EXTREMITIES: There is no evidence of gross deformity. Full range of motion is noted in the hips and shoulders. SKIN: There is no obvious evidence of any rash. There are no petechiae, pallor or cyanosis noted. NEUROLOGIC: Patient is awake and alert. Her strength is symmetric. Her patellar reflexes are 1+ bilaterally. She is oriented to person and place but has difficulty with time and situation. Course 0915: The patient was evaluated in room B12B. A history and physical was performed. 0925: I spoke to the patient's son, Emery. He said that his ex- was at the house last night at 2100 and all was well. He stated that the patient called him this morning and seemed off. He stated that the patient did not have any recent trauma. 0938: I spoke to the patient's son again. 1040: I updated the patient. 1053: I discussed the patient's case with Krystyna Rankin who will evaluate the patient for further management. Consultations Consultation #1: Krystyna Rankin Time: 10:53 Administered Medications Enoxaparin Sodium (Lovenox) 40 mg SQ Q24H MARGARITA Stop: 09/29/18 15:59 Last Admin: 08/30/18 17:22 Dose: 40 mg Documented by: [id number] Ceftriaxone Sodium 1,000 mg/ (Dextrose) 50 mls @ 100 mls/hr IV Q24H MARGARITA; Protocol Stop: 09/04/18 15:59 Last Infusion: 08/30/18 17:51 Dose: 0 mls/hr Documented by: [id number] Admin: 08/30/18 17:21 Dose: 100 mls/hr Documented by: [id number] Discontinued Medications Albuterol (Duoneb) 3 ml NEB NOW STA Stop: 08/30/18 10:20 Last Admin: 08/30/18 17:41 Dose: Not Given Documented by: [id number] Aspirin (Ecotrin Ectab) 81 mg PO ONE ONE Stop: 08/30/18 14:03 Last Admin: 08/30/18 17:21 Dose: 81 mg Documented by: [id number] Clopidogrel Bisulfate (Plavix) 75 mg PO NOW ONE Stop: 08/30/18 14:02 Last Admin: 08/30/18 17:21 Dose: 75 mg Documented by: [id number] Ioversol (Optiray 320 125ml) 120 ml IV ONCE PRN PRN Reason: Interaction Checking Stop: 09/03/18 09:56 Last Admin: 08/30/18 09:58 Dose: 120 ml Documented by: [id number] Labetalol HCl (Normodyne) 10 mg IV NOW STA Stop: 08/30/18 10:13 Last Admin: 08/30/18 10:21 Dose: 10 mg Documented by: [id number] Cosigned by: [id number] Labetalol HCl (Normodyne) 10 mg IV NOW STA Stop: 08/30/18 10:51 Last Admin: 08/30/18 11:11 Dose: 10 mg Documented by: [id number] Cosigned by: [id number] Perflutren Lipid Microsphere (Definity) 2 ml IV ONCE ONE Stop: 08/30/18 16:28 Last Admin: 08/30/18 16:27 Dose: 2 ml Documented by: [id number] Medical Decision Making Differential Diagnosis Differential includes acute coronary syndrome, myocardial infarction, CVA, TIA, anemia, infection, pneumonia, UTI, pyelonephritis, poor nutrition, dehydration, electrolyte disturbance,hypoglycemia. Medical Records Attestation: I reviewed the patient's medical records. Home Medications Current Medication List: was personally reviewed by me Laboratory Data Attestation: I reviewed the patient's lab results. Result diagrams: 08/31/18 05:37 08/31/18 05:37 Lab Results 08/30/18 08/30/18 08/30/18 Range/Units 09:23 09:23 09:23 WBC 10.21 (4.8-10.8) K/uL RBC 5.63 H (4.2-5.4) M/uL Hgb 17.0 H (12.0-16.0) g/dL POC Hgb (12.0-16.0) g/dl Hct 49.2 H (37-47) % POC Hct (37-47) % MCV 87.4 (80-100) fL MCH 30.2 (25-34) pg MCHC 34.6 (32-36) g/dL RDW Std Deviation 40.6 (36.4-46.3) fL RDW Coeff of Ying 12.7 (11.5-14.5) % Plt Count 201 (130-400) K/uL MPV 9.9 (7.4-10.4) fL Immature Gran % (Auto) 0.3 % Neut % (Auto) 85.3 % Lymph % (Auto) 9.6 % [place] % (Auto) 4.3 % Eos % (Auto) 0.3 % Baso % (Auto) 0.2 % Immature Gran # (Auto) 0.03 H (0.00-0.02) K/uL Neut # (Auto) 8.71 H (1.4-6.5) K/uL Lymph # (Auto) 0.98 L (1.2-3.4) K/uL [place] # (Auto) 0.44 (0.11-0.59) K/uL Eos # (Auto) 0.03 (0-0.5) K/uL Baso # (Auto) 0.02 (0-0.2) K/uL PT 10.9 (9.0-12.0) Seconds INR 1.1 (0.9-1.1) APTT 23.9 (21.0-31.0) Seconds PTT Ratio 0.9 POC Sodium (135-144) mEq/L Sodium 143 (136-145) mmol/L POC Potassium (3.3-5.0) mEq/L Potassium 3.7 (3.5-5.1) mmol/L POC Chloride (101-112) mEq/L Chloride 111 H (98-107) mmol/L Carbon Dioxide 23 (21-32) mmol/L POC Total CO2 (24-31) mEq/l Anion Gap 9.0 (3-11) POC Anion Gap (16-25) mmol/L POC BUN (7-18) mg/dl BUN 16 (7-18) mg/dl Creatinine 0.74 (0.6-1.2) mg/dl POC Creatinine (0.6-1.3) mg/dl Est Cr Clr Drug Dosing 71.1 ml/min Est GFR ( Amer) 97.2 Est GFR (Non-Af Amer) 83.8 BUN/Creatinine Ratio 22.2 H (10-20) Glucose 122 H (70-99) mg/dl POC Glucose (other) (70-99) mg/dl Estimat Average Glucose mg/dl Hemoglobin A1c (4.5-5.6) % Calcium 10.7 H (8.5-10.1) mg/dl POC Ioniz Calcium Jayme (1.12-1.32) mmol/l Magnesium 2.4 (1.8-2.4) mg/dl Total Bilirubin 0.7 (0.2-1) mg/dl AST 27 (15-37) U/L ALT 37 (12-78) U/L Alkaline Phosphatase 70 (45-117) U/L CK-MB (CK-2) 2.7 (0.5-3.6) ng/ml CK/CKMB % Calc Not Reportable Troponin I < 0.015 (0-0.045) ng/ml Total Protein 7.7 (6.4-8.2) gm/dl Albumin 4.2 (3.4-5.0) gm/dl Globulin 3.5 (2.5-4.0) gm/dl Albumin/Globulin Ratio 1.2 (0.9-2) Triglycerides (0-150) mg/dl Cholesterol (0-200) mg/dl LDL Cholesterol, Calc mg/dl VLDL Cholesterol, Calc mg/dl HDL Cholesterol mg/dl Cholesterol/HDL Ratio Specimen Hemolysis Urine Color Urine Appearance (Clear) Urine pH (4.5-7.5) Ur Specific [place] (1.000-1.030) Urine Protein (Negative) Urine Glucose (UA) (Negative) Urine Ketones (Negative) Urine Blood (Negative) Urine Nitrite (Negative) Urine Bilirubin (Negative) Urine Urobilinogen (Negative) Ur Leukocyte Esterase (Negative) Urine WBC (Auto) (0-5) /hpf Urine RBC (Auto) (0-4) /hpf U Hyaline Cast (Auto) (0-5) /lpf U Epithel Cells (Auto) (0-5) /lpf Urine Bacteria (Auto) (Negative) 08/30/18 08/30/18 08/30/18 Range/Units 09:23 09:26 09:45 WBC (4.8-10.8) K/uL RBC (4.2-5.4) M/uL Hgb (12.0-16.0) g/dL POC Hgb 17.0 H (12.0-16.0) g/dl Hct (37-47) % POC Hct 50 H (37-47) % MCV (80-100) fL MCH (25-34) pg MCHC (32-36) g/dL RDW Std Deviation (36.4-46.3) fL RDW Coeff of Ying (11.5-14.5) % Plt Count (130-400) K/uL MPV (7.4-10.4) fL Immature Gran % (Auto) % Neut % (Auto) % Lymph % (Auto) % [place] % (Auto) % Eos % (Auto) % Baso % (Auto) % Immature Gran # (Auto) (0.00-0.02) K/uL Neut # (Auto) (1.4-6.5) K/uL Lymph # (Auto) (1.2-3.4) K/uL [place] # (Auto) (0.11-0.59) K/uL Eos # (Auto) (0-0.5) K/uL Baso # (Auto) (0-0.2) K/uL PT (9.0-12.0) Seconds INR (0.9-1.1) APTT (21.0-31.0) Seconds PTT Ratio POC Sodium 144 (135-144) mEq/L Sodium (136-145) mmol/L POC Potassium 3.6 (3.3-5.0) mEq/L Potassium (3.5-5.1) mmol/L POC Chloride 108 (101-112) mEq/L Chloride (98-107) mmol/L Carbon Dioxide (21-32) mmol/L POC Total CO2 24 (24-31) mEq/l Anion Gap (3-11) POC Anion Gap 16.0 (16-25) mmol/L POC BUN 18 (7-18) mg/dl BUN (7-18) mg/dl Creatinine (0.6-1.2) mg/dl POC Creatinine 0.6 (0.6-1.3) mg/dl Est Cr Clr Drug Dosing ml/min Est GFR ( Amer) Est GFR (Non-Af Amer) BUN/Creatinine Ratio (10-20) Glucose (70-99) mg/dl POC Glucose (other) 124 H (70-99) mg/dl Estimat Average Glucose 123 mg/dl Hemoglobin A1c 5.9 H (4.5-5.6) % Calcium (8.5-10.1) mg/dl POC Ioniz Calcium Jayme 1.26 (1.12-1.32) mmol/l Magnesium (1.8-2.4) mg/dl Total Bilirubin (0.2-1) mg/dl AST (15-37) U/L ALT (12-78) U/L Alkaline Phosphatase (45-117) U/L CK-MB (CK-2) (0.5-3.6) ng/ml CK/CKMB % Calc Troponin I (0-0.045) ng/ml Total Protein (6.4-8.2) gm/dl Albumin (3.4-5.0) gm/dl Globulin (2.5-4.0) gm/dl Albumin/Globulin Ratio (0.9-2) Triglycerides (0-150) mg/dl Cholesterol (0-200) mg/dl LDL Cholesterol, Calc mg/dl VLDL Cholesterol, Calc mg/dl HDL Cholesterol mg/dl Cholesterol/HDL Ratio Specimen Hemolysis Urine Color Yellow Urine Appearance Turbid H (Clear) Urine pH 7.5 (4.5-7.5) Ur Specific [place] 1.016 (1.000-1.030) Urine Protein Negative (Negative) Urine Glucose (UA) Negative (Negative) Urine Ketones Negative (Negative) Urine Blood Negative (Negative) Urine Nitrite Negative (Negative) Urine Bilirubin Negative (Negative) Urine Urobilinogen Negative (Negative) Ur Leukocyte Esterase 2+ H (Negative) Urine WBC (Auto) 1-5 (0-5) /hpf Urine RBC (Auto) 0-4 (0-4) /hpf U Hyaline Cast (Auto) 1-5 (0-5) /lpf U Epithel Cells (Auto) >30 H (0-5) /lpf Urine Bacteria (Auto) 1+ H (Negative) 08/30/18 08/31/18 08/31/18 Range/Units 17:49 05:37 05:37 WBC 6.87 (4.8-10.8) K/uL RBC 5.18 (4.2-5.4) M/uL Hgb 15.8 (12.0-16.0) g/dL POC Hgb (12.0-16.0) g/dl Hct 45.8 (37-47) % POC Hct (37-47) % MCV 88.4 (80-100) fL MCH 30.5 (25-34) pg MCHC 34.5 (32-36) g/dL RDW Std Deviation 41.9 (36.4-46.3) fL RDW Coeff of Ying 13.0 (11.5-14.5) % Plt Count 217 (130-400) K/uL MPV 9.7 (7.4-10.4) fL Immature Gran % (Auto) 0.1 % Neut % (Auto) 68.6 % Lymph % (Auto) 21.7 % [place] % (Auto) 7.6 % Eos % (Auto) 1.7 % Baso % (Auto) 0.3 % Immature Gran # (Auto) 0.01 (0.00-0.02) K/uL Neut # (Auto) 4.71 (1.4-6.5) K/uL Lymph # (Auto) 1.49 (1.2-3.4) K/uL [place] # (Auto) 0.52 (0.11-0.59) K/uL Eos # (Auto) 0.12 (0-0.5) K/uL Baso # (Auto) 0.02 (0-0.2) K/uL PT (9.0-12.0) Seconds INR (0.9-1.1) APTT (21.0-31.0) Seconds PTT Ratio POC Sodium (135-144) mEq/L Sodium 142 (136-145) mmol/L POC Potassium (3.3-5.0) mEq/L Potassium 3.8 (3.5-5.1) mmol/L POC Chloride (101-112) mEq/L Chloride 111 H (98-107) mmol/L Carbon Dioxide 27 (21-32) mmol/L POC Total CO2 (24-31) mEq/l Anion Gap 5.0 (3-11) POC Anion Gap (16-25) mmol/L POC BUN (7-18) mg/dl BUN 17 (7-18) mg/dl Creatinine 0.87 (0.6-1.2) mg/dl POC Creatinine (0.6-1.3) mg/dl Est Cr Clr Drug Dosing 60.5 ml/min Est GFR ( Amer) 79.9 Est GFR (Non-Af Amer) 68.9 BUN/Creatinine Ratio 19.7 (10-20) Glucose 95 (70-99) mg/dl POC Glucose (other) (70-99) mg/dl Estimat Average Glucose mg/dl Hemoglobin A1c (4.5-5.6) % Calcium 9.8 (8.5-10.1) mg/dl POC Ioniz Calcium Jayme (1.12-1.32) mmol/l Magnesium (1.8-2.4) mg/dl Total Bilirubin (0.2-1) mg/dl AST (15-37) U/L ALT (12-78) U/L Alkaline Phosphatase (45-117) U/L CK-MB (CK-2) (0.5-3.6) ng/ml CK/CKMB % Calc Troponin I (0-0.045) ng/ml Total Protein (6.4-8.2) gm/dl Albumin (3.4-5.0) gm/dl Globulin (2.5-4.0) gm/dl Albumin/Globulin Ratio (0.9-2) Triglycerides 109 (0-150) mg/dl Cholesterol 215 H (0-200) mg/dl LDL Cholesterol, Calc 136 mg/dl VLDL Cholesterol, Calc 22 mg/dl HDL Cholesterol 57 mg/dl Cholesterol/HDL Ratio 4 Specimen Hemolysis Urine Color Yellow Urine Appearance Clear (Clear) Urine pH 7.5 (4.5-7.5) Ur Specific [place] > 1.045 H (1.000-1.030) Urine Protein Negative (Negative) Urine Glucose (UA) Negative (Negative) Urine Ketones Negative (Negative) Urine Blood Negative (Negative) Urine Nitrite Negative (Negative) Urine Bilirubin Negative (Negative) Urine Urobilinogen Negative (Negative) Ur Leukocyte Esterase Negative (Negative) Urine WBC (Auto) 1-5 (0-5) /hpf Urine RBC (Auto) 0-4 (0-4) /hpf U Hyaline Cast (Auto) 1-5 (0-5) /lpf U Epithel Cells (Auto) 10-20 H (0-5) /lpf Urine Bacteria (Auto) Negative (Negative) Imaging Data Radiologist's Impression: Radiology results as stated below per my review and the radiologist's interpretation: XR chest 1V portable CLINICAL HISTORY: altered dyspnea COMPARISON STUDY: No previous studies for comparison. FINDINGS: The bones soft tissues and hemidiaphragms are normal. The cardiomediastinal silhouette is normal. The lungs are clear. The pulmonary vasculature is normal. IMPRESSION: Negative chest. The above report was generated using voice recognition software. It may contain grammatical, syntax or spelling errors. Electronically signed by: Simón Arias M.D. 08/30/2018 9:[address] angio neck with con HISTORY: Mental status change cva TECHNIQUE: Multiaxial CT angiography of the neck was performed IV contrast: 100 cc All measurements were calculated based on NASCET criteria. Maximum intensity projection images were also obtained. A dose lowering technique was utilized adhering to the principles of ALARA. COMPARISON STUDY: None. FINDINGS: The aortic arch and proximal great vessels are widely patent. There is no significant stenosis, occlusion, or dissection identified within the bilateral common carotid, internal carotid, or vertebral arteries. IMPRESSION: No significant stenosis, occlusion, or dissection identified within the carotid or vertebral arteries. The above report was generated using voice recognition software. It may contain grammatical, syntax or spelling errors. Electronically signed by: Simón Arias M.D. 08/30/2018 10:[address] angio head w con HISTORY: Mental status change cva TECHNIQUE: Multiaxial CT angiography of the head was performed IV contrast: None. Maximum intensity projection images were also obtained. A dose lowering technique was utilized adhering to the principles of ALARA. COMPARISON: None. FINDINGS: There is no mass, hematoma, midline shift, or acute infarct. Visualized intracranial internal carotid arteries, distal vertebral arteries, and basilar artery are widely patent. There is no significant stenosis, occlusion, or aneurysm seen within the bilateral ACAs, MCAs, or rn med surg. IMPRESSION: No significant stenosis, occlusion, or aneurysm within the [place] of [place]. The above report was generated using voice recognition software. It may contain grammatical, syntax or spelling errors. Electronically signed by: Simón Arias M.D. 08/30/2018 10:[address] head/brain wo con CLINICAL HISTORY: 67 years-old Female with Stroke evaluation . Acute strokelike symptoms TECHNIQUE: Multiple axial CT images of the head were obtained without contrast. A dose lowering technique was utilized adhering to the principles of ALARA. COMPARISON: None. FINDINGS: No acute intracranial hemorrhage, midline shift, intracranial mass, hydrocephalus, territorial ischemia or abnormal extra-axial collection. Mild age-related involutional changes. Patchy white matter hypodensities are sug gestive of chronic microvascular ischemic changes. Cerebral vascular calcifications are noted. The calvarium is intact. The paranasal sinuses, mastoid air cells, and middle ear cavities are clear. IMPRESSION: No acute intracranial abnormality identified. The above report was generated using voice recognition software. It may contain grammatical, syntax or spelling errors. Electronically signed by: Miles Garcia M.D. 08/30/2018 9:58 AM ECG Data Attestation: I personally reviewed and interpreted this ECG as follows: Indication: altered mental status Rate (beats per minute): 109 Rhythm: sinus tachycardia Findings: + ST depression (low lateral); no PAC, no PVC and no ectopy Comparison ECG Date: no prior available Blood Pressure Blood Pressure Findings: Elevated blood pressure Blood Pressure Disposition: further management by hospitalist KYLIE Jim The patient is a 67-year-old female who presented to the emergency department for evaluation of altered mental status. We did receive a prehospital notification from the alodize machine operator who is unsure if the patient met criteria for stroke alert. Ultimately we could not determine the last known well time and the patient was unable to provide this information. For this reason she was evaluated first. The best we could determine by obtaining history from the prehospital personnel as well as the patient as well as her son was at the patient was last known well the evening before at approximately 9 PM when the patient's former [id number] had spoken to her. The patient's symptoms were mostly those of cognitive memory. She was having difficulty forming new memories. She asked me multiple times what test we are going to perform and when I explained her CAT scan reports to her she did not remember having a CAT scan in our department. I discussed patient's laboratory and radiographic studies with her as well as her son via telephone. Other family members presented to the emergency department to be with the patient. Her symptoms did not improve significantly while she was in the emergency department but she did not worsen and did not develop any motor deficits. I discussed this case with the on-call [facility] hospitalist. They have agreed to evaluate the patient in the emergency department for further management and disposition. The patient did have an MRI obtained which did show a subacute infarct. Impression & Plan Altered mental status, Confusion, Encephalopathy, hypertensive, Stroke Discharge Plan Visit Data *Final* Discharge Date/Time: 08/30/18 14:41 Chief Complaint: Altered Mental Status ED Provider: Noel Fournier Discharge Problem: Altered mental status, Confusion, Encephalopathy, hypertensive, Stroke Patient Disposition: Admitted As Inpatient Discharge Instructions Interventions: ED Discharge Assessment Last Done: 08/30/18 14:41 Discharge Problem: Stroke Qualifiers: CVA mechanism: unspecified Qualified Code(s): I63.9 - Cerebral infarction, unspecified The scribe's documentation has been prepared under my direction and personally reviewed by me in its entirety. I confirm that the note above accurately re flects all work, treatment, procedures, and medical decision making performed by me.
[2018-08-30 18:27] LABS: Appearance Urine Clear (Clear); Bacteria Urine Automated Negative (Negative); Bilirubin Urine Negative (Negative); Blood Urine Negative (Negative); Color Urine Yellow; Glucose Urine UA Negative (Negative); Ketones Urine Negative (Negative); Leukocyte Esterase Urine Negative (Negative); Nitrite Urine Negative (Negative); RBC Urine Automated 0-4 /hpf (0-4); Specific Gravity Urine > 1.045 (1.000-1.030); Urobilinogen Urine Negative (Negative); pH Urine 7.5 (4.5-7.5)
[2018-08-30 18:30] LABS: Protein Urine Negative (Negative)
[2018-08-31 05:56] LABS: Basophils # (auto) 0.02 K/uL (0-0.2); Basophils % (auto) 0.3 %; Eosinophils # (auto) 0.12 K/uL (0-0.5); Eosinophils % (auto) 1.7 %; Hematocrit (blood only) 45.8 % (37-47); Hemoglobin 15.8 g/dL (12.0-16.0); Immature Granulocytes # (auto) 0.01 K/uL (0.00-0.02); Immature Granulocytes % (auto) 0.1 %; Lymphocytes # (auto) 1.49 K/uL (1.2-3.4); Lymphocytes % (auto) 21.7 %; Mean Corpuscular Hgb Conc 34.5 g/dL (32-36); Mean Corpuscular Volume 88.4 fL (80-100); Mean Platelet Volume 9.7 fL (7.4-10.4); Monocytes # (auto) 0.52 K/uL (0.11-0.59); Monocytes % (auto) 7.6 %; Neutrophils # (auto) 4.71 K/uL (1.4-6.5); Neutrophils % (auto) 68.6 %; Platelet Count 217 K/uL (130-400); RDW Standard Deviation 41.9 fL (36.4-46.3); Red Blood Count 5.18 M/uL (4.2-5.4); White Blood Count 6.87 K/uL (4.8-10.8)
[2018-08-31 06:12] LABS: Estimated Average Glucose 123 mg/dl; Hemoglobin A1C 5.9 % (4.5-5.6)
[2018-08-31 06:31] LABS: BUN Creatinine Ratio 19.7 (10-20); Calcium 9.8 mg/dl (8.5-10.1); Creatinine Clr Calc Pharmacy 60.5 ml/min; Est GFR (African American) 79.9; Est GFR (Non-African American) 68.9; Potassium 3.8 mmol/L (3.5-5.1)
[2018-08-31] MEDS ORDERED: ASPIRIN 81 MG ECTAB PO SCH (09:00)
[2018-08-31] MEDS ORDERED: CLOPIDOGREL BISULFATE 75 MG TAB PO SCH (09:00)
[2018-08-31] MEDS ORDERED: PANTOprazole 40 MG TAB PO SCH (09:00)
--- NOTE | 2018-08-31 13:06 | Hospitalist Progress Note ---
Date of Service August 31, 2018 Assessment & Plan (1) Altered mental status: -Patient presenting from home after an episode of amnesia this morning -BP is significantly elevated upon EMS arrival at 226/131; in the ED 193/ -MRI Brain- Acute / Subacute CVA- Right Superior Frontal Lobe Infarct -S/P Aspirin 325 mg x 1 dose -On ASA 81 mg daily. Started on Plavix 75 mg daily. Dual antiplatelet x 21 days and than aspirin 81 mg life long. Start Atorvastatin 40 mg q HS (LDL 136, Goal<70) -Work up- Head CT/CTA, neck CTA unremarkable; Echo- EF 60-65%, Mild LVH, no interatrial stunt; Lipid panel- LDL 136 -Neurology inputs appreciated- Recommends zio or cardionet outpatient to rule out arrythmias -PT/OT cleared for discharge to home (2) Hypertensive urgency: -Upon EMS arrival 226/131; in the ED 193/124 -Home regimen: amlodipine 5 mg daily -Received labetalol 10 mg IV x 2 in the ED with improvement in BP -BP has stabilized -Monitor outpatient (3) Hypercalcemia: -Mild, Ca+ 10.7, now 9.8 -Follow up outpatient (4) GERD (gastroesophageal reflux disease): -Continue PPI (5) DVT prophylaxis: -SQ Lovenox DISPOSITION Need to follow up outpatient with PCP - need arrangements for follow up with neurology outpatient, cardiology (for zio / cardionet placement) Discussed with daughter in law by bedside Eager to be discharged Okay to discharge home today. Cleared by PT Subjective Patient is doing well. Denies any symptoms,. No localized weakness, slurred speech, confusion, headaches, nausea, vomiting. Physical Exam Constitutional: WD/WN, vitals as above Eyes: PERRL, conjunctivae normal, anicteric sclerae Neck: trachea midline, no thyromegaly Respiratory: normal respiratory effort, lungs clear to auscultation Cardiovascular: RRR, no murmur, no edema Gastrointestinal (Abdomen): Inspection/Auscultation: normal bowel sounds Percussion/Palpation: abdomen soft; abdomen nontender, no guarding and abdomen not rigid Neurologic: patellar DTR's 2+ bilat, sensation intact and PERRL, EOMI, accommodation nl, no face palsy, no dysarthria CN's II-XI intact bilaterally and moves all extremities Results & Data Vital Signs (Past 12 Hours) Vital Signs Temp Pulse Resp BP Pulse Ox 08/31/18 12:27 36.8 C 75 18 148/91 H 95 08/31/18 07:40 36.9 C 83 18 152/87 H 96 08/31/18 03:09 37.0 C 84 18 166/100 H 96
[2018-08-31] MEDS ORDERED: ATORVASTATIN 40 MG TAB PO SCH (13:15)
[2018-08-31] MEDS ORDERED: STROKE PATIENT DISCHARGE STA (13:41)
--- NOTE | 2018-08-31 13:44 | Discharge Summary ---
Date of Service August 31, 2018 Admission HPI Per Admitting Provider 67-year-old female who presents to the ED with altered mental status. History of this morning's events are unobtainable from her. History is obtained from ED records and patient's sister who is the bedside. Patient is visiting from out of town watching her grandchildren while her son is out of town. She reports she felt in her usual state of health yesterday and remembers going to bed. This morning, she vaguely remembers waking up however has no recollection of the events to follow. Apparently, patient called her son thinking she may have missed the bus for the grandchildren. He noted that she was confused and not at her baseline and he called EMS. EMS arrived to the house and brought the patient to the ED. Upon their arrival, patient's BP was 226/131. Patient's son was able to confirm that the children did arrive to school safely. Patient reports she has no remembrance of waking them up, getting them ready for school, or getting them on the bus. Patient reports she otherwise been feeling well recently. She does not note any unilateral weakness, numbness, tingling. No headache or blurred vision. She denies chest pain shortness of breath. No lightheadedness, digits, diaphoresis, syncopal events. She denies abdominal pain, nausea, vomiting, diarrhea. No other recent illnesses, fevers, chills. She denies any urinary symptoms. Upon arrival to the ED, patient's BP remained significantly elevated at 193/124. She received labetalol 10 mg IV x 2 with improvement in BP. Most recent BP is 174/97. Head CT and CTA, neck CTA are all unremarkable. Labs are unremarkable as well. Principal Diagnosis 1. Right frontal lobe Infarct with no residual deficits 2. HTN urgency Secondary diagnosis on discharge 1. GERD Discharge Exam Constitutional WD/WN, vitals as above Eyes PERRL, conjunctivae normal, anicteric sclerae Neck trachea midline, no thyromegaly Respiratory normal respiratory effort, lungs clear to auscultation Cardiovascular RRR, no murmur, no edema Gastrointestinal (Abdomen) Inspection/Auscultation: normal bowel sounds Percussion/Palpation: abdomen soft; abdomen nontender, no guarding and abdomen not rigid Neurologic patellar DTR's 2+ bilat, sensation intact and PERRL, EOMI, accommodation nl, no face palsy, no dysarthria CN's II-XI intact bilaterally and moves all extremities Discharge Data Allergies Allergy/AdvReac Type Severity Reaction Status Date / Time lemon Allergy Hives Unverified 08/30/18 11:17 Consultations 08/30/18 10:53 ED Decision to Admit Stat 08/30/18 15:35 Consult Case Management - Discharge Planning Routine Consult Neurology Routine Ordered Studies 08/30/18 09:22 CT angio head w con Stat CT angio neck with con Stat CT head/brain wo con Stat 08/30/18 11:49 MR brain wo/w con Stat Hospital Course (1) Altered mental status: Patient presenting from home after an episode of amnesia this morning -BP is significantly elevated upon EMS arrival at 226/131; in the ED 193/124 -MRI Brain- Acute / Subacute CVA- Right Superior Frontal Lobe Infarct -S/P Aspirin 325 mg x 1 dose -Started on ASA 81 mg, Plavix 75 mg daily. Dual antiplatelet x 21 days and than aspirin 81 mg life long. Started Atorvastatin 40 mg q HS (LDL 136, Goal<70) -Work up- Head CT/CTA, neck CTA unremarkable; Echo- EF 60-65%, Mild LVH, no interatrial stunt; Lipid panel- LDL 136 -Neurology inputs appreciated- Recommends zio or cardionet outpatient to rule out arrythmias -PT/OT cleared for discharge to home (2) Hypertensive urgency: -Upon EMS arrival 226/131; in the ED 193/124 -Home regimen: amlodipine 5 mg daily -Received labetalol 10 mg IV x 2 in the ED with improvement in BP -BP has stabilized -Monitor outpatient (3) Hypercalcemia: -Mild, Ca+ 10.7, now 9.8 -Follow up outpatient (4) GERD (gastroesophageal reflux disease): -Continue PPI (5) DVT prophylaxis: -SQ Lovenox DISPOSITION Need to follow up outpatient with PCP - need arrangements for follow up with neurology outpatient, cardiology (for zio / cardionet placement) Discussed with daughter in law by bedside Eager to be discharged Okay to discharge home today. Cleared by PT Instructed not to drive x 4 weeks Total Time Total Time Spent Total Time Spent (In Minutes): 35 minutes Discharge Plan Discharge Items Patient Disposition: Home - Self-Care Reason For Visit: ALTERED MENTAL STATUS Discharge Diagnosis: Right frontal lobe Stroke Discharge Goals: Improve disease control Activity: Resume your previous activity Non-emergency contact: Primary Care Provider Call non-emergency contact if: your symptoms worsen Follow-up/Referrals: Josiah Biswas [Other] (CALL FOR FOLLOW UP APPT DATE/TIME) Diet: Heart Healthy and Low Sodium (2gm) Addtl Provider Instructions: MEDICATION CHANGES 1. New medication- Aspirin 81 mg daily 2. New medication- Plavix 75 mg daily (Take Plavix for 21 days and than discontinue) Aspirin to be taken lifelong 3. New medication-Atorvastatin 40 mg at bedtime Need to follow up with 1. PCP in 7 days - post hospital follow up visit (please call for appt date/time) 2. Neurology follow up in 3-4 weeks 3. Cardiology for zio patch or cardionet placement to rule out arrythmias NO DRIVING FOR 4 WEEKS till reevaluated by physician Prescriptions: New atorvastatin 40 mg Tablet 40 mg PO QAM 30 Days Qty: 30 RF: 0 clopidogrel 75 mg Tablet 75 mg PO QAM 21 Days Qty: 21 RF: 0 aspirin [Ecotrin Low Strength] 81 mg Tablet,Delayed Release (Dr/Ec) 81 mg PO QAM 30 Days Qty: 30 RF: 0 Continued amlodipine [Norvasc] 5 mg tablet 5 mg PO QAM RF: 0 omeprazole 20 mg capsule,delayed release(DR/EC) 20 mg PO QAM RF: 0 calcium carbonate-vitamin D3 [Calcium 500 + D (D3)] 500 mg(1,250mg) -125 unit Tablet 1 tab PO QAM RF: 0 Stand-Alone Forms: [facility] Discharge Orders: Discharge Order (Routine); Ordered 08/31/18 Ordered By: Shiela Booker Admission Data Admit Date/Time: 08/30/18 19:58 Attending Provider: Shiela Booker Admit Provider: Sandra Rueda Other Providers: Sandra Rueda ; Jimi Handy Service: Telemetry
--- NOTE | 2018-08-31 15:32 | Pharmacy Report ---
Pharmacist Stroke Counseling - Date of Service August 31, 2018 - Scope: Pharmacy has been consulted to provide medication discharge counseling for this patient admitted with ischemic stroke as per the Pharmacist Discharge Counseling for Stroke Patients Protocol. - Medications on Discharge: Home Medications Medication Instructions Recorded Confirmed amlodipine [Norvasc] 5 mg PO QAM 08/30/18 08/30/18 calcium carbonate-vitamin D3 1 tab PO QAM 08/30/18 08/30/18 [Calcium 500 + D (D3)] omeprazole 20 mg PO QAM 08/30/18 08/30/18 New Rx's Medication Instructions Recorded aspirin [Ecotrin Low Strength] 81 mg PO QAM 30 Days #30 tab 08/31/18 atorvastatin 40 mg PO QAM 30 Days #30 tab 08/31/18 clopidogrel 75 mg PO QAM 21 Days #21 tab 08/31/18 - Action: The above medications, specifically ones for stroke treatment/prophylaxis, have been reviewed in detail with the patient and/or patient contracts representative(s) prior to discharge. This includes indication, common adverse reactions, drug interactions, and medication administration. Medication counseling has been employed using the teach-back method to ensure understanding. - Outcome: The patient and/or patient contracts representative(s) have demonstrated understanding of the medications. Please note, they are aware that the pharmacist will call them within 72 hours post-discharge to confirm that the appropriate medications are being taken and answer any further medication related questions the patient might have at that time. Contact information Individual to be contacted: patient Relationship to patient (if applicable): Phone number: [phone] Best time to call: anytime Additional comments: * Ms. Farrar was counseled and reports she manages her own medications. She was also provided with a pillbox. * We reviewed her medication list in detail and home medications were correct. She reports occasionally taking fish oil for her cholesterol but this was never prescribed for her. I advised her to not take it because of risk of bleeding while taking the Plavix and aspirin now. * I had spoken to Dr. Booker to have the patient's omeprazole switched to pa ntoprazole to prevent the drug interaction with the clopidogrel. This was explained to the patient and was going to be the plan; however, the pantoprazole is not covered by her insurance. Patient had reported taking Prevacid before without resolution and has been on omeprazole for a few years for "ulcers a few years ago". She reports not being able to stop it for a period of time due to symptoms returning. Dr. Booker was okay with patient taking both the Plavix and omeprazole but patient was just instructed to separate them by 6 hours. * Of note, patient aware to take Plavix for 21 days only and then ASA indefinitely Thank you for allowing pharmacy to be involved in the care of this patient. Please call [phone] or [phone] with any additional questions
--- NOTE | 2018-09-01 14:36 | Pharmacy Report ---
Pharmacist Post D/C Phone Note - Phone Note: Date of phone call: September 01, 2018. Individual with whom pharmacist spoke to: ARACELIS HENDRICKS The following questions were reviewed during the phone call with responses listed below each: Can you tell me the medications that you are currently taking as well as when and how you take each medication? -See Table Below When have you missed any doses of your medications? - never What side effects are you having from your medications, specifically, the new medications you were started on? - none What questions do you have about your medications? - none What problems are you having obtaining your medications? - none When is your next appointment with your primary care doctor? - Patient has an appointment scheduled for September 07 with her PCP. Additional comments: - Pt voiced understanding that she is to only take Plavix for 21 days. She also understands that she is to separate the Plavix and omeprazole by at least 6 hours to minimize any potential drug interactions. As per the Pharmacist Discharge Counseling for Stroke Patients Protocol, this phone call has been completed within 72 hours of discharge. Thank you for allowing us to be involved in the care of this patient. - Home Medications: Home Medications Medication Instructions Recorded Confirmed amlodipine [Norvasc] 5 mg PO QAM 08/30/18 08/30/18 calcium carbonate-vitamin D3 1 tab PO QAM 08/30/18 08/30/18 [Calcium 500 + D (D3)] omeprazole 20 mg PO QAM 08/30/18 08/30/18 New Rx's Medication Instructions Recorded aspirin [Ecotrin Low Strength] 81 mg PO QAM 30 Days #30 tab 08/31/18 atorvastatin 40 mg PO QAM 30 Days #30 tab 08/31/18 clopidogrel 75 mg PO QAM 21 Days #21 tab 08/31/18
== END 2018-08-31 15:01 | disposition home or self-care (01) | DRG 65 ==
LOC: ED 09:12 → 2E 09:12